=== PATIENT | female | born 1980 | race African-American/Black ===

== ENCOUNTER 2017-05-23 08:32 | Emergency (ER) | payer SELFPAY ==
[~2017-05-23] VITALS: Ht 167.6 cm; Wt 92.0 kg
[2017-05-23] MEDS ORDERED: HYDROCODONE/ACETAMINOPHEN 5/325MG TABLET PO ONE (12:15)
[2017-05-23 13:51] VITALS: BP 139/87
== END 2017-05-23 13:55 | disposition home or self-care (01) ==
LOC: ER 08:38
DX: R51 Headache (principal); V89.2XXA Person injured in unspecified motor-vehicle accident, traffic, initial encounter; M54.2 Cervicalgia; G43.909 Migraine, unspecified, not intractable, without status migrainosus; M62.838 Other muscle spasm; Y93.89 Activity, other specified; Y92.89 Other specified places as the place of occurrence of the external cause; Y99.8 Other external cause status
CPT/HCPCS: 70450; 72125; 81025; 99284